=== PATIENT | female | born 1940 | race Caucasian/White ===

== ENCOUNTER 2017-03-18 08:57 | Day surgery (SDC) | payer MEDICARE, OTHER ==
[2017-03-17 13:13] VITALS: BMI 21.4
[~2017-03-18 08:57] MED LIST: FLU VACC TS2017-18 (>65YR) 0.5 ML SYRINGE IM ONE
[2017-03-18 10:40] VITALS: BP 147/79; TEMP 97.8
--- NOTE | 2017-03-18 13:16 | CT ---
CT MYELOGRAM OF THE LUMBAR SPINE: Date: 03-18-17 Comparison: None. History: Bilateral lower extremity radiculopathy. Technique: Following the intrathecal administration of iodinated contrast media, serial axial CT imag ing obtained from the lower thoracic spine through the inferior aspect of the sacrum. Coronal and sag ittal reformatted imaging obtained. FINDINGS: A small hiatal hernia is noted. Imaged lung bases are unremarkable. Post-operative clips and sutures line is seen associated with the stomach suggesting prior gastric bypass surgery. Clips are noted in the right upper quadrant, evidence of prior cholecystectomy. Numerous parapelvic cysts are noted. There is a moderate degree of levoscoliosis centered at the L3 level. There is mild anterolisthesis of L3 on L4 measuring 5 mm. There is mild anterolisthesis of L4 on L5 m easuring 6 mm. Conus medullaris terminates at the T12-L1 level. T12-L1: There is disc space narrowing and anterior osteophyte formation with bilateral facet hypertro phy. There is a small posterior osteophyte in the right paracentral region. There is no significant c entral canal stenosis. There is mild right neural foraminal stenosis. L1-2: Mild bilateral facet hypertrophy and disc space narrowing. No significant central canal stenosi s. Mild bilateral neural foraminal stenosis. L2-3: There is prominent bilateral facet hypertrophy. There is a left sided hemilaminectomy. There is mild disc bulge with mild central canal stenosis. There is moderate bilateral neural foraminal steno sis, right greater than left. L3-4: There is disc space narrowing and vacuum disc formation with sclerotic endplate change noted ce ntrally and laterally on the right. There is a small disc bulge. There is bulky bilateral facet hyper trophy with moderate/severe central canal stenosis and bilateral neural foraminal stenosis, severe on the right and moderate to severe on the left. L4-5: There is prominent bilateral facet hypertrophy with osteophyte encroachment on bilateral neural foramina and moderate bilateral foraminal stenosis, right greater than left. There is mild central c anal stenosis. L5-S1: Prominent bilateral facet hypertrophy with osteophyte encroachment on the neural foramina and associated bilateral neural foraminal stenosis, severe on the right and moderate on the left. No sign ificant central canal stenosis. No worrisome osseous lytic or blastic lesion. No acute fracture. 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 POS: PHILLIP
--- NOTE | 2017-03-18 13:27 | RAD ---
LUMBAR SPINE MYELOGRAM: 03/18/2017 HISTORY: Bilateral lower extremity radiculopathy. Degenerative scoliosis. COMPARISON: None. FINDINGS: Asphalt Tamper frontal and lateral imaging of the lumbar spine provided. There is mild anterolisthesis at L3-L4 and at L4-L5. There is disk space narrowing with anterior ost eophyte formation and vacuum disk formation at L3-L4. There is multilevel facet hypertrophic change. Frontal imaging demonstrates prominent degenerative scoliosis of the lumbar spine, apex to the left . The patient was placed in the prone position on the fluoroscopic table, and the skin overlying the mack mbar spine was prepped and draped in the normal sterile fashion. At L2-L3, the skin was anesthetized with 1% buffered Lidocaine. A 22 gauge needle was advanced into the thecal sac, with intermittent fluoroscopic guidance, and removal of the stylet yielded clear cere brospinal fluid. Subsequently, approximately 10 mL of iodinated contrast media was injected into the thecal sac, outli bladimir the nerve roots of the cauda equina. The needle was removed. The patient tolerated the procedu re well. The patient was sent to the CT scanner for a lumbar spine CT myelogram. EXPOSURE DATA: Fluoroscopic time 1.5 minutes with 4029 mGy per cm2. IMPRESSION: 1. Multilevel lumbar spine degenerative change. 2. Successful lumbar spine myelogram. POS: PHILLIP
== END 2017-03-18 12:00 | disposition home or self-care (01) ==
LOC: RAD 08:57 → EDSTATUS 10:00 → RAD 12:00
PROVIDERS: ATTEND Neurological Surgery
DX: M41.50 Other secondary scoliosis, site unspecified (principal); M54.16 Radiculopathy, lumbar region; M81.0 Age-related osteoporosis without current pathological fracture; E24.9 Cushing's syndrome, unspecified; K44.9 Diaphragmatic hernia without obstruction or gangrene; Z91.81 History of falling; Z79.810 Long term (current) use of selective estrogen receptor modulators (SERMs); Z79.899 Other long term (current) drug therapy; Z98.84 Bariatric surgery status; Z98.49 Cataract extraction status, unspecified eye; Z95.0 Presence of cardiac pacemaker; Z90.49 Acquired absence of other specified parts of digestive tract; Z98.890 Other specified postprocedural states
CPT/HCPCS: 62304; 72131

== ENCOUNTER 2020-11-06 16:16 | Outpatient (CLI) | payer MEDICARE, OTHER ==
[2020-11-06 17:23] LABS: #Basophils 0.1 10x3/uL (0.0-0.2); #Eosinphils 0.1 10x3/uL (0.0-0.5); #Monocytes 0.6 10x3/uL (0.0-1.1); #Neutrophils 4.8 10x3/uL (1.5-8.4); %Basophils 0.6 % (0.0-2.0); %Eosinophils 1.7 % (0.0-6.0); %Lymphocytes 30.1 % (18.0-47.0); %Monocytes 7.5 % (0.0-10.0); %Neutrophils 58.6 % (40.0-75.0); Hemoglobin 13.4 g/dL (12.0-15.5); Mean Corpuscular HGB CONC 32.3 g/dL (32.0-36.0); Mean Corpuscular Hemoglobin 27.1 pg (27.0-33.0); Mean Corpuscular Volume 83.8 fl (81.6-98.3); Mean Platelet Volume 10.2 fl (7.4-10.4); Platelet Count 310 10x3/uL (150-450); RBC Distribution Width 13.8 % (11.5-14.5); Red Blood Cell (RBC) Count 4.95 10x6/uL (3.90-5.03); White Blood Cell (WBC) Count 8.1 10x3/uL (3.5-10.5)
[2020-11-06 17:30] LABS: PTT 25.7 sec (22.0-33.0); Prothrombin Time 11.4 sec (9.5-12.1)
[2020-11-06 17:34] LABS: ALT (SGPT) 34 U/L (8-55); AST (SGOT) 41 U/L (5-34); Albumin 4.1 g/dL (3.4-4.8); Alkaline Phosphatase 112 U/L (40-110); Anion Gap 13 mmol/L (10-20); BUN (Urea Nitrogen) 12 mg/dL (9.8-20.1); Bilirubin, Total 0.3 mg/dL (0.2-1.2); Calc. Creatinine Clearance 0 mL/min (70-130); Calcium 10.4 mg/dL (7.8-10.44); Carbon Dioxide 26 mmol/L (23-31); Chloride 107 mmol/L (98-107); Globulin 2.5 g/dL (2.4-3.5); Glucose 99 mg/dL (83-110); Potassium 4.1 mmol/L (3.5-5.1); Protein, Total 6.6 g/dL (5.8-8.1); Sodium 142 mmol/L (136-145)
[2020-11-07 00:51] LABS: SARS-CoV-2 PCR by NAA Not Detected (NotDetected)
== END 2020-11-06 16:17 | disposition home or self-care (01) ==
LOC: LABBT 16:16
PROVIDERS: ATTEND Internal Medicine Cardiovascular Disease
DX: Z01.812 Encounter for preprocedural laboratory examination (principal); Z20.822 Contact with and (suspected) exposure to COVID-19
CPT/HCPCS: 80053; 85025; 85610; 85730; U0003; U0005

== ENCOUNTER 2020-11-08 09:40 | Day surgery (SDC) | payer MEDICARE, OTHER ==
[2020-11-07 12:21] VITALS: BMI 32.3
[2020-11-08] MEDS ORDERED: Midazolam HCl 2 mg/2 ml Vial ONE (11:29)
[2020-11-08] MEDS ORDERED: Fentanyl 100 MCG/2 ML VIAL ONE (11:30)
[2020-11-08] MEDS ORDERED: CEFAZOLIN 1 GM VIAL ONE (11:30)
[2020-11-08] MEDS ORDERED: Gentamicin 80 MG/2 ML VIAL ONE (11:30)
[2020-11-08] MEDS ORDERED: Lidocaine 1% (PF) 30 ML VIAL ONE ×2 (11:30→12:20)
[2020-11-08] MEDS ORDERED: hydrALAZINE 20 MG/ML VIAL ONE (12:56)
[2020-11-08] MEDS ORDERED: Potassium Chloride 20 MEQ/100 ML PREMIX BAG ONE (12:56)
== END 2020-11-08 15:12 | disposition home or self-care (01) ==
LOC: CCL 09:40
PROVIDERS: ATTEND Internal Medicine Cardiovascular Disease
PROC: 0JPT0PZ Removal of Cardiac Rhythm Related Device from Trunk Subcutaneous Tissue and Fascia, Open Approach (ICD-10-PCS; principal; 2020-11-08)
PROC: 0JH606Z Insertion of Pacemaker, Dual Chamber into Chest Subcutaneous Tissue and Fascia, Open Approach (ICD-10-PCS; 2020-11-08)
DX: I47.2 Ventricular tachycardia (principal); R00.1 Bradycardia, unspecified; K21.9 Gastro-esophageal reflux disease without esophagitis; N20.0 Calculus of kidney; I10 Essential (primary) hypertension; Z45.010 Encounter for checking and testing of cardiac pacemaker pulse generator [battery]; Z79.899 Other long term (current) drug therapy
CPT/HCPCS: 33228; 93005; 99152; 99153; C1785; J0360; J0690; J1580; J2001; J2250; J3010; J3480